=== PATIENT | male | born 1935 | race Caucasian/White ===

== ENCOUNTER → 2018-12-17 12:26 | Outpatient (CLI) | payer OTHER, SELFPAY ==
[2018-12-17 13:25] LABS: B Type Natriuretic Peptide 127 (<100)
[2018-12-17 14:10] LABS: Thyroid Stimulating Hormone 1.12 uIU/mL (0.47-4.68)
== END ==
PROVIDERS: Family Provider Family Medicine; PCP Family Medicine; Visit Provider Internal Medicine Cardiovascular Disease
DX: I47.2 Ventricular tachycardia (principal)
CPT/HCPCS: 36415; 83880; 83883; 84155; 84165; 84443

== ENCOUNTER → 2019-02-12 10:51 | Outpatient (CLI) | payer OTHER, SELFPAY ==
[2019-02-12 12:22] LABS: Add Manual Diff / Slide Review NO; Basophils Absolute Auto 0 /uL (0-100); Basophils Percent Auto 0.3 % (0-2); Eosinophils Absolute Auto 200 /uL (0-450); Eosinophils Percent Auto 1.8 % (2-4); Hematocrit 43.2 % (41-53); Hemoglobin 14.4 g/dL (13.5-17.5); Lymphocytes Absolute Auto 2300 /uL (1100-4500); Lymphocytes Percent Auto 24.5 % (25-40); Mean Corpuscular HGB Conc 33.4 % (30-36); Mean Corpuscular Volume 89.9 fL (80-100); Monocytes Absolute Auto 600 /uL (0-900); Monocytes Percent Auto 6.6 % (3-14); Neutrophils Absolute Auto 6200 /uL (1500-7000); Neutrophils Percent Auto 66.8 % (50-75); Platelet Count 177 X10^3/uL (150-400); Red Blood Cell Count 4.81 X10^6/uL (4.5-5.9); Red Cell Distribution Width 13.6 % (11.6-14.8); White Blood Cell Count 9.2 X10^3/uL (4.5-11.0)
[2019-02-12 12:25] LABS: Alanine Aminotransferase 21 IU/L (21-72); Albumin 3.8 g/dL (3.5-5.0); Albumin Globulin Ratio 1.4 (1.0-2.8); Alkaline Phosphatase 78 U/L (38-126); Aspartate Aminotransferase 22 IU/L (17-59); BUN Creatinine Ratio 19.4 (6-22); Bilirubin Total 0.6 mg/dL (0.2-1.3); Blood Urea Nitrogen 35 mg/dL (9-20); Carbon Dioxide 29 mmol/L (22-32); Chloride 106 mmol/L (98-107); Estimated Glomerular Filt Rate 36.4 mL/min (>60); Globulin 2.7 g/dL (1.7-4.1); Glucose 108 mg/dL (80-110); HEMOLYSIS < 15 (0-50); Potassium 4.4 mmol/L (3.4-5.1); Sodium 141 mmol/L (137-145); Total Protein 6.5 g/dL (6.3-8.2)
== END ==
PROVIDERS: Family Provider Family Medicine; PCP Family Medicine; Visit Provider Internal Medicine Cardiovascular Disease
DX: I47.2 Ventricular tachycardia (principal); R94.39 Abnormal result of other cardiovascular function study
CPT/HCPCS: 36415; 80053; 85025

== ENCOUNTER 2019-09-28 11:26 | Emergency (ER) | payer MEDICARE, OTHER, SELFPAY ==
[2019-09-28 11:43] VITALS: BP 153/85; PULSE 88; RESP 12; TEMP 36.3; O2SAT 98
--- NOTE | 2019-09-28 11:59 | ED.SKABFB ---
HPI - Skin/Abscess/Foreign Bdy <Emelia Ruano PA-C - Last Filed: 09/28/19 23:16> General Chief complaint: Skin/Abscess/Foreign Body Stated complaint: picc line flushed Time Seen by Provider: 09/28/19 11:48 Source: patient Mode of arrival: Ambulatory Limitations: no limitations History of Present Illness HPI narrative: This is an 83-year-old gentleman from [place] with a history notable for recent hospitalization for sepsis, Pseudomonas infection at [facility] who has been receiving IV infusions with Zosyn (performed by , RN) at home since his release; his PICC line has not been working since Saturday night. He states he had a peripheral IV placed by paramedics on Saturday, but he did miss his IV antibiotic therapy 3 times since his PICC line became plugged. He is being followed by Dr. Brown infectious disease in [place] and was recommended that he come to the emergency department in [place] to attempt to flush his PICC line, however if this is not successful it was recommended that he proceed with having another line placed. He is scheduled to continue having these Zosyn infusions for over 4 more weeks. 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 He denies any systemic symptoms or change in his overall health including fever, chills, nausea, vomiting, diarrhea, abdominal pain, increased fatigue, redness or pain at the site of the PICC line insertion, or any other symptoms. MD complaint: other (PICC line not flushing) Onset (ago): day(s) (2) Location: RUE Severity: moderate Quality: other (not painful) Relieving factors: none Context: recent antibiotic Related Data Home Medications Medication Instructions Recorded Confirmed VITAMIN D (Vitamin D3) 1,000 unit PO QDAY #0 07/18/12 Previous Rx's Medication Instructions Recorded rizatriptan [Maxalt] 10 mg PO QDAY #18 tab 06/27/16 albuterol sulfate [Ventolin HFA] 2 puff INH SEE INSTRUCTIONS PRN #2 08/14/16 inh febuxostat [Uloric] 40 mg PO QDAY #180 tab 05/17/17 testosterone cypionate 200 mg IM X1 #2 ea 11/14/16 [Depo-Testosterone] fluticasone propionate [Flonase 1 spray INTRANASAL QDAY #1 bot 11/22/16 Allergy Relief] omeprazole 10 mg PO QDAY #90 cap 11/22/16 doxazosin [Cardura] 6 mg PO HS #135 tab 11/26/16 lisinopril 20 mg PO QDAY #90 tab 12/06/16 tramadol 0 PO BIDP PRN #120 tab 01/04/17 doxycycline monohydrate 50 mg PO BID #90 cap 01/07/17 metronidazole [Noritate] 1 % TOPICAL QDAY #30 gm 01/07/17 sildenafil (pulm.hypertension) 0 PO HS #150 tab 01/07/17 Allergies Allergy/AdvReac Type Severity Reaction Status Date / Time allopurinol [ALLOPURINOL] Allergy Unknown H.A. Unverified 08/07/17 11:59 amlodipine [AMLODIPINE] Allergy Unknown EDEMA Unverified 08/07/17 11:59 colchicine [COLCHICINE] Allergy Unknown NEUSEA,DYSU Unverified 08/07/17 11:59 NIKOS,CRAMPIN G formoterol [FORMOTEROL] Allergy Unknown Unverified 08/07/17 11:59 mometasone furoate Allergy Unknown Unverified 08/07/17 11:59 [MOMETASONE FUROATE] tiotropium [TIOTROPIUM] Allergy Unknown RASH Unverified 08/07/17 11:59 Review of Systems <Emelia Ruano PA-C - Last Filed: 09/28/19 23:16> Review of Systems Narrative: GENERAL: Denies chills, fatigue, malaise, fever, sweats. HEENT: Denies sinus pain, ear pain, sore throat, difficulty swallowing, dizziness. RESPIRATORY: Denies dyspnea, cough, wheezing, hemoptysis, sputum. CARDIOVASCULAR: Denies chest pain, palpitations, orthopnea, edema, GASTROINTESTINAL: Denies nausea, vomiting, abdominal pain, diarrhea, constipation, melena. : Denies dysuria, frequency, incontinence, hematuria, urinary retention. MUSCULOSKELETAL: denies weakness, joint pain, or bony pain SKIN: Positive for PICC line Right arm not flushing, Denies rash, skin lesions, or other NEUROLOGIC: Denies weakness, headache, numbness, change in speech, confusion, seizures, incoordination. PSYCHIATRIC: No concerning psychosocial issues. 12 point review of systems is negative except for those stated above Patient History <Emelia Ruano PA-C - Last Filed: 09/28/19 23:16> Social History Smoking Status: Never smoker Smoking Status: Never smoker Substance Use Type: does not use Exam <PEREZ Yarbrough Last Filed: 09/28/19 23:16> Narrative Exam Narrative: GENERAL: 83 year old patient appears stated age. Well-nourished, well-developed patient, in no apparent distress. HEAD: Atraumatic. Normocephalic. EYES: Pupils equal round and reactive. Extraocular motions intact. No scleral icterus. No injection or drainage. ENT: Nose without bleeding, purulent drainage. Throat without erythema, tonsillar hypertrophy or exudate. Airway patent. NECK: Trachea midline. Non tender CARDIOVASCULAR: Regular rate and rhythm without murmurs, gallops, or rubs. Pacer/defibrillator present Left anterior chest. RESPIRATORY: Clear to auscultation. Breath sounds equal bilaterally. No wheezes, rales, or rhonchi. GASTROINTESTINAL: Abdomen soft, non-tender, nondistended. EXTREMITIES: No edema or joint tenderness, there is a PICC line inserted medially in the Right upper arm. BACK: Nontender without deformity or crepitance. No flank tenderness. NEURO: AOx3. SKIN: No rash or erythema of visible areas Initial Vital Signs Initial Vital Signs: Vital Signs Temperature 97.4 F L 09/28/19 11:43 Pulse Rate 88 09/28/19 11:43 Respiratory Rate 12 09/28/19 11:43 Blood Pressure 153/85 H 09/28/19 11:43 Pulse Oximetry 98 09/28/19 11:43 <Amos Acevedo DO - Last Filed: 09/29/19 07:12> Initial Vital Signs Initial Vital Signs: Vital Signs Temperature 97.4 F L 09/28/19 11:43 Pulse Rate 88 09/28/19 11:43 Respiratory Rate 12 09/28/19 11:43 Blood Pressure 153/85 H 09/28/19 11:43 Pulse Oximetry 98 09/28/19 11:43 Course <PEREZ Yarbrough Last Filed: 09/28/19 23:16> Course Course Narrative: Spoke with Dr. Brown office and advised them their patient is here, they were aware and advised replacing PICC line today if needed. After discussing with RN, we agreed to contact PICC nurse that has specific experience with flushing PICC lines/determining if they will need replacement. Waiting call back from him. 12:09 Daysi (PICC RN) has evaluated and reports line is entirely clotted off and will need to be replaced. 12:18 PICC RN notes that it will not be possible to replace the patient's PICC line today, as he has cardiac leads present on the left for his pacer/ defibrillator he will have to wait [address] a new line on the right, and Daysi has instead placed a peripheral IV today so the Pt can continue parenteral therapy at home, advising that he will get him set up for an outpatient appointment to have a PICC line inserted on likely Saturday of this week. 12:45 Orders Ordered: ED Orders 09/28/19 12:19 EKG-12 Lead Stat Vital Signs Vital signs: Vital Signs - 8 hr 09/28/19 11:43 09/28/19 13:18 Temperature 97.4 F L Pulse Rate 88 90 Respiratory Rate 12 18 Blood Pressure 153/85 H 165/77 H Pulse Oximetry 98 97 <Amos Acevedo DO - Last Filed: 09/29/19 07:12> Orders Ordered: ED Orders 09/28/19 12:19 EKG-12 Lead Stat Vital Signs Vital signs: Vital Signs - 8 hr 09/28/19 11:43 09/28/19 13:18 Temperature 97.4 F L Pulse Rate 88 90 Respiratory Rate 12 18 Blood Pressure 153/85 H 165/77 H Pulse Oximetry 98 97 MDM - Skin/Abscess/Foreign Bdy <Emelia Ruano PA-C - Last Filed: 09/28/19 23:16> Differential Diagnosis Differential diagnosis: Likely other (PICC line problem) Medical Records Attestation: I reviewed the patient's medical records. ECG Data Attestation: I personally reviewed and interpreted this ECG as follows: (Sinus at Rate of 66 with first degree block, occasional PVCs. DC 240 QRS) MDM Narrative Medical decision making narrative: This is a well-appearing 83-year-old with recent hospitalization for Pseudomonas sepsis receiving IV antibiotics, Zosyn at home multiple times per day. Who presents with complaints of his PICC line not working properly since Saturday night--he is a resident of [place], where paramedics placed a peripheral line to enable him to continue his therapy prior to him coming to the emergency department today. Discussed this patient with Dr. Brown office in [place] who is managing his care and they do not report that there is any need for him to be admitted for IV antibiotics, but that he can continue his therapy at home. Patient showed no signs of systemic symptoms, and labs were not obtained. PICC line was not able to be placed due to the presence of cardiac leads on the left and clogged PICC line and removed today in the emergency department on the right. Patient is to return in 2-3 days for a PICC line replacement and until that time he has a peripheral IV in place to continue his parental therapy. Discharge Plan Departure Patient Disposition: Home Clinical Impression: Occluded PICC line Qualifiers: Encounter type: initial encounter Qualified Code(s): T82.898A - Other specified complication of vascular prosthetic devices, implants and grafts, initial encounter Discharge Date/Time: 09/28/19 13:18 Activity Restrictions/Additional Instructions: Thank you for letting us to be part of your care in the emergency department today. There is no evidence of an emergent or life threatening illness at this time, but follow up with your doctor in 1-2 days is recommended nonetheless to continue to rule out serious underlying causes of your symptoms. Please call the office for an appointment. Please return to the Emergency Department for any worsening or persistent symptoms. Please take medications as directed. Because you have cardiac pacer defibrillator wires on the left, we could not place a PICC line there today, however we did put a IV in your arm which you can use to continue her antibiotic therapy at home, for the next 48 hours until you come in as an outpatient to have of PICC line placed on Saturday of this week. If you develop any worsening, new or concerning symptoms please do not hesitate to call your physician or return to the emergency department. Including trouble with your IV, pain, swelling or redness at the previous PICC line site, fever, chills, nausea, vomiting, diarrhea or any other symptoms of concern to you. I recommend that you call Dr. Brown' office and advise her that you were not able to get a PICC line placed today and you are continuing with IV therapy through a peripheral IV in your arm for the next two days. Prescriptions: No Action VITAMIN D (Vitamin D3) 1,000 unit PO QDAY Qty: 0 RF: 0 rizatriptan [Maxalt] 10 MG tablet 10 mg PO QDAY Qty: 18 RF: 0 albuterol sulfate [Ventolin HFA] 90 MCG/PUFF HFA aerosol inhaler 2 puff INH SEE INSTRUCTIONS PRNQty: 2 RF: 1 febuxostat [Uloric] 40 MG tablet 40 mg PO QDAY Qty: 180 RF: 0 testosterone cypionate [Depo-Testosterone] 200 MG/1 ML oil 200 mg IM X1 Qty: 2 RF: 1 omeprazole 10 MG capsule,delayed release(DR/EC) 10 mg PO QDAY Qty: 90 RF: 0 fluticasone propionate [Flonase Allergy Relief] 9.9 ML spray,suspension 1 spray Intranasal QDAY Qty: 1 RF: 0 doxazosin [Cardura] 4 MG tablet 6 mg PO HS Qty: 135 RF: 1 lisinopril 20 MG tablet 20 mg PO QDAY Qty: 90 RF: 0 tramadol 50 MG tablet 0 PO BIDP PRNQty: 120 RF: 0 sildenafil (pulm.hypertension) 20 MG tablet 0 PO HS Qty: 150 RF: 0 doxycycline monohydrate 50 MG capsule 50 mg PO BID Qty: 90 RF: 0 metronidazole [Noritate] 1 % cream 1 % Topical QDAY Qty: 30 RF: 0 Referrals: Nila Brown [Non-Staff] - Michael Avila MD [Primary Care Provider] - <Amos Acevedo DO - Last Filed: 09/29/19 07:12> Cosign ED Attending Cosignature Attestation: I was immediately available in the department for consultation. This documentation has been reviewed and I agree with assessment and plan. Supervised by Amos Acevedo DO
--- NOTE | 2019-09-28 13:08 | PC.NURSE ---
called to evaluate picc line for pt c/
--- NOTE | 2019-09-28 13:09 | PC.NURSE ---
called to evaluate rt apicc
--- NOTE | 2019-09-28 13:09 | PC.NURSE ---
Called to evaluate rt arm picc line for c/o unable to infuse through line. attempted to flush line and unable to infuse ant
--- NOTE | 2019-09-28 13:15 | PC.NURSE ---
pt has a picc line he is unable to flush . call anuj the di nurse to assist.
[2019-09-28 13:18] VITALS: BP 165/77; PULSE 90; RESP 18; O2SAT 97
--- NOTE | 2019-09-28 13:24 | PC.NURSE ---
Called to evaluate Rt arm picc line for occlusion. Unable to flush line, blood noted in upper end which is usually clear. Unable to place line in lt arm due to pacemaker. New picc line can be placed 48hrs after current line discontinued. Rt arm picc line pulled with no problems line intact very little bleeding. Pressure held for 10mn on picc site dressing applied. 20g PIV started in upper lt arm via US.All pt questions answered instructed pt proper flushing technique.
--- NOTE | 2019-10-06 13:17 | ONC.MSW ---
Description: Initial Referral Navigation T/C Reason for Referral: Probable Multiple Myeloma Activity: Called patient to confirm that we've received his referral, introduced myself as the navigator, and briefly explained the availability of ongoing support, assistance and resources available at [facility]. Pt resides with his lynette Moreno, was recently hospitalized at [facility], where he had a bone marrow biopsy proving malignancy. Confirmed his initial appt. time for next Saturday, 10/12 at 10:00am.
== END 2019-09-28 13:18 | disposition home or self-care (01) ==
PROVIDERS: Emergency Provider Student in an Organized Health Care Education/Training Program; Family Provider Family Medicine; PCP Family Medicine
DX: T82.898A Other specified complication of vascular prosthetic devices, implants and grafts, initial encounter (principal); I44.0 Atrioventricular block, first degree; Z95.0 Presence of cardiac pacemaker
CPT/HCPCS: 36569; 93005; 93010; 99281; 99284

== ENCOUNTER → 2019-09-30 12:06 | Outpatient (CLI) | payer MEDICARE, OTHER, SELFPAY ==
--- NOTE | 2019-09-30 | DI.RAD.S_ITS ---
PROCEDURE: FL GUIDED PICC PLACEMENT INDICATIONS: Bacteremia COMPARISON: None. FINDINGS: PICC was placed by the intravenous therapy team from the right side. Fluoroscopic spot film demonstrates the tip of PICC projecting to the area of distal SVC IMPRESSION: Tip of PICC projects to the area of the distal SVC Dictated by: Jose Pascual M.D. on 09/30/2019 at 15:56 Approved by: Jose Pascual M.D. on 09/30/2019 at 16:12
== END ==
PROVIDERS: Family Provider Family Medicine; PCP Family Medicine; Referring Provider Internal Medicine Infectious Disease; Visit Provider Internal Medicine Infectious Disease
DX: Z45.2 Encounter for adjustment and management of vascular access device (principal); R78.81 Bacteremia
CPT/HCPCS: 36573

== ENCOUNTER → 2019-12-30 09:15 | Outpatient (CLI) | payer MEDICARE, OTHER, SELFPAY ==
[2019-12-30 10:09] LABS: Add Manual Diff / Slide Review NO; Basophils Absolute Auto 0 /uL (0-100); Basophils Percent Auto 0.5 % (0-2); Eosinophils Absolute Auto 100 /uL (0-450); Eosinophils Percent Auto 1.8 % (2-4); Hematocrit 38.2 % (41-53); Hemoglobin 12.8 g/dL (13.5-17.5); Lymphocytes Absolute Auto 1900 /uL (1100-4500); Lymphocytes Percent Auto 23.2 % (25-40); Mean Corpuscular HGB Conc 33.6 % (30-36); Mean Corpuscular Hemoglobin 30.1 PG (26-34); Mean Corpuscular Volume 89.6 fL (80-100); Monocytes Absolute Auto 500 /uL (0-900); Monocytes Percent Auto 6.8 % (3-14); Neutrophils Absolute Auto 5500 /uL (1500-7000); Neutrophils Percent Auto 67.7 % (50-75); Platelet Count 180 X10^3/uL (150-400); Red Blood Cell Count 4.26 X10^6/uL (4.5-5.9); Red Cell Distribution Width 13.9 % (11.6-14.8); White Blood Cell Count 8.1 X10^3/uL (4.5-11.0)
[2019-12-30 10:23] LABS: Alanine Aminotransferase 19 IU/L (<50); Albumin 3.8 g/dL (3.5-5.0); Albumin Globulin Ratio 1.2 (1.0-2.8); Alkaline Phosphatase 110 U/L (38-126); Aspartate Aminotransferase 24 IU/L (17-59); BUN Creatinine Ratio 19.5 (6-22); Bilirubin Total 0.6 mg/dL (0.2-1.3); Blood Urea Nitrogen 43 mg/dL (9-20); Calcium 10.6 mg/dL (8.4-10.2); Carbon Dioxide 28 mmol/L (22-32); Chloride 105 mmol/L (98-107); Estimated Glomerular Filt Rate 28.8 mL/min (>60); Globulin 3.3 g/dL (1.7-4.1); Glucose 93 mg/dL (80-110); HEMOLYSIS < 15 (0-50); Sodium 139 mmol/L (137-145); Total Protein 7.1 g/dL (6.3-8.2)
[2019-12-31 13:48] LABS: Ionized Calcium 5.5 mg/dL (4.5-5.6)
[2019-12-31 15:48] LABS: Free Kappa Lt Chains, Serum 740.4 mg/L (3.3-19.4); Free Lambda Lt Chains,Serum 17.3 mg/L (5.7-26.3)
[2020-01-01 13:45] LABS: Albumin 3.6 g/dL (2.9-4.4); Alpha-1-Globulin 0.2 g/dL (0.0-0.4); Alpha-2-Globulin 0.6 g/dL (0.4-1.0); Gamma Globulin 1.8 g/dL (0.4-1.8); Globulin Total 3.3 g/dL (2.2-3.9); Protein, Total 6.9 g/dL (6.0-8.5)
== END ==
PROVIDERS: Family Provider Family Medicine; PCP Family Medicine; Referring Provider Internal Medicine; Visit Provider Internal Medicine
DX: C90.00 Multiple myeloma not having achieved remission (principal)
CPT/HCPCS: 36415; 80053; 82330; 83883; 84155; 84165; 85025

== ENCOUNTER → 2020-01-06 12:06 | Outpatient (CLI) | payer MEDICARE, OTHER, SELFPAY ==
--- NOTE | 2020-01-06 12:25 | DIET.PN ---
Addendum entered by Joseline Garcia 01/06/20 13:31: Recc pt consider phosphate binders c meals if phos is high. Pt is Chronic Kidney Disease 3 Original Note: Dietary Progress Note Assessment: 84y M here for dietary reccs for renal insufficiency and has multiple myeloma currently seeing [facility]. kidney removed in 1990 r/t cancer had heart issues and kidney function went down Pt goal is to stay alive and have quality of life, here to appease . HT: 5'10 WT: 172# (lost 15# since June but not concerning to him) Labs: eGFR 28 down 10pts from September 2019, Cr 2.2, up from 1.7 in September 2019, K+ 5.0 WNL, no phos on file Usual Day: wakes 8am (does not feel rested, back pain and fatigue) coffee c 1/2 and 1/2 and sugar B(9-11am): shredded wheat c 2% milk and table sugar c fruit (berries, grows own fruits) plays golf twice per week, tasks around the house, 10 acres, mow, fixing L(2pm main meal): meat (pork, chicken, beans, fish), vegetable (fresh in summer, green beans and artichokes, asparagus, peas, tomatoes), salad, potato (baked, fried, oven fries c olive oil) takes afternoon, wakes 4pm D(6-7pm): leftovers or salad c nachos (cheddar cheese, peppers) watches a little TV sometime has little bedtime snack (peaches) goes to bed 9:30pm Drinks: soda stream machine mixes fizzy water with grape juice, or plain water Sodium: does sometimes salt at the table, mimimal processed foods Protein: pts food recall is on track for 50g PRO/d (0.6g/kg) and should stay at this level r/t high Cr. potassium: pt does not eat bananas, does like potatoes, tomatoes and orange juice. phosphorus: pt puts 2% milk on cereal and eats 1-2 servings dairy per day Nutrition Diagnosis: altered nutrition related laboratory values (eGFR 28, Cr 2.2) r/t renal insufficiency and renal diet related knowledge deficit aeb pt had kidney removed in 1990, pt not following renal diet, pts renal labs became less regulated in September 2019. Interventions: 1. Discussed intake of sodium, to limit it to 1tsp per day, not all at once, avoiding ultraprocessed foods. 2. Discussed eGFR and Cr and intake of protein. Aim for 50g/d, pt received protein content of foods handout, prioritize plant protein for renal health. 3. Discussed borderline potassium likely due to potato, tomato, and orange juice intake. Recc pt soak potatoes and drain water before preparing to reduce potassium by half and to stagger intake of high K+ foods over several days. 4. Discussed pts current sx of itchy skin and joint pain. No phos levels on record, recc lab draw. Encouraged pt to avoid baking leaveners as these are absorbed 100%, dairy and muñiz phosphorus only absorbed 60%. Monitoring/Evaluations: [facility] phos lab draws r/t pt has joint pain and itchy skin, pt has RD card to schedule f/u as desired when new labs arrive
== END ==
PROVIDERS: Family Provider Family Medicine; PCP Family Medicine; Referring Provider Internal Medicine; Visit Provider Internal Medicine
DX: N28.9 Disorder of kidney and ureter, unspecified (principal); C90.00 Multiple myeloma not having achieved remission
CPT/HCPCS: 97802

== ENCOUNTER → 2020-08-09 08:00 | Outpatient (CLI) | payer MEDICARE, OTHER, SELFPAY ==
[2020-08-09 08:34] LABS: Add Manual Diff / Slide Review NO; Basophils Absolute Auto 0 /uL (0-100); Basophils Percent Auto 0.3 % (0-2); Eosinophils Absolute Auto 200 /uL (0-450); Eosinophils Percent Auto 1.7 % (2-4); Hematocrit 37.7 % (41-53); Hemoglobin 12.5 g/dL (13.5-17.5); Lymphocytes Absolute Auto 2900 /uL (1100-4500); Lymphocytes Percent Auto 26.7 % (25-40); Mean Corpuscular HGB Conc 33.3 % (30-36); Mean Corpuscular Hemoglobin 30.1 PG (26-34); Mean Corpuscular Volume 90.4 fL (80-100); Monocytes Absolute Auto 900 /uL (0-900); Monocytes Percent Auto 8.1 % (3-14); Neutrophils Absolute Auto 6800 /uL (1500-7000); Neutrophils Percent Auto 63.2 % (50-75); Platelet Count 163 X10^3/uL (150-400); Red Blood Cell Count 4.17 X10^6/uL (4.5-5.9); Red Cell Distribution Width 13.8 % (11.6-14.8); White Blood Cell Count 10.7 X10^3/uL (4.5-11.0)
[2020-08-09 08:45] LABS: Alanine Aminotransferase 21 IU/L (<50); Albumin 3.6 g/dL (3.5-5.0); Alkaline Phosphatase 116 U/L (38-126); Aspartate Aminotransferase 26 IU/L (17-59); BUN Creatinine Ratio 23.9 (6-22); Bilirubin Total 0.6 mg/dL (0.2-1.3); Blood Urea Nitrogen 45 mg/dL (9-20); Calcium 9.3 mg/dL (8.4-10.2); Carbon Dioxide 27 mmol/L (22-32); Chloride 109 mmol/L (98-107); Estimated Glomerular Filt Rate 34.5 mL/min (>60); Globulin 3.6 g/dL (1.7-4.1); Glucose 86 mg/dL (80-110); HEMOLYSIS < 15 (0-50); Potassium 4.3 mmol/L (3.4-5.1); Sodium 142 mmol/L (137-145); Total Protein 7.2 g/dL (6.3-8.2)
[2020-08-11 00:44] LABS: Free Kappa Lt Chains, Serum 1071.7 mg/L (3.3-19.4); Free Lambda Lt Chains,Serum 15.2 mg/L (5.7-26.3)
[2020-08-11 00:45] LABS: Ionized Calcium 4.6 mg/dL (4.5-5.6)
[2020-08-11 17:49] LABS: Albumin 3.7 g/dL (2.9-4.4); Alpha-1-Globulin 0.2 g/dL (0.0-0.4); Alpha-2-Globulin 0.7 g/dL (0.4-1.0); Gamma Globulin 2.3 g/dL (0.4-1.8); Globulin Total 3.9 g/dL (2.2-3.9); Protein, Total 7.6 g/dL (6.0-8.5)
== END ==
PROVIDERS: Family Provider Family Medicine; PCP Family Medicine; Referring Provider Internal Medicine; Visit Provider Internal Medicine
DX: C90.00 Multiple myeloma not having achieved remission (principal)
CPT/HCPCS: 36415; 80053; 82330; 83883; 84155; 84165; 85025

== ENCOUNTER → 2021-01-11 15:36 | Outpatient (CLI) | payer MEDICARE, OTHER, SELFPAY ==
--- NOTE | 2021-01-11 15:38 | DI.RAD.S_ITS ---
PROCEDURE: XR CHEST 2V INDICATIONS: cough TECHNIQUE: 2 views of the chest were acquired. COMPARISON: [facility], CHEST 2 VIEW, 05/29/2013, 14:19. FINDINGS: Surgical changes and devices: Pacemaker Lungs and pleura: Lungs are clear. No pleural effusions or pneumothorax. Mediastinum: Mediastinal contours are normal. Heart size is normal. Bones and chest wall: No suspicious bony abnormalities. Soft tissues appear unremarkable. IMPRESSION: No evidence acute pulmonary process. Dictated by: Torres Valdes M.D. on 01/11/2021 at 16:37 Approved by: Torres Valdes M.D. on 01/11/2021 at 16:37
== END ==
PROVIDERS: Family Provider Family Medicine; PCP Family Medicine; Referring Provider Internal Medicine Medical Oncology; Visit Provider Internal Medicine Medical Oncology
DX: C90.00 Multiple myeloma not having achieved remission (principal); R05 Cough; Z95.0 Presence of cardiac pacemaker
CPT/HCPCS: 71046

== ENCOUNTER → 2021-02-08 14:10 | Outpatient (CLI) | payer MEDICARE, OTHER, SELFPAY ==
--- NOTE | 2021-02-08 14:12 | DI.RAD.S_ITS ---
PROCEDURE: XR CHEST 2V INDICATIONS: shortness of breath TECHNIQUE: 2 views of the chest were acquired. COMPARISON: [place], [place], [place] PET CT FUSION WHOLE BODY, 12/07/2020, 9:33. [place], [place], [place] LUNG VQ, 01/15/2021, 9:52. [facility], [place], XR CHEST 1 VIEW, 01/14/2021, 15:16. [facility], , XR CHEST 2V, 01/11/2021, 15:35. FINDINGS: Surgical changes and devices: An AICD is seen. The leads are seen in stable positions. Left upper quadrant clips are seen. Lungs and pleura: Poorly defined opacity can be seen within the right middle lobe anteriorly. The lungs otherwise appear relatively clear. Mediastinum: Mediastinal contours are normal. Heart size is normal. Bones and chest wall: No suspicious bony abnormalities. Age-appropriate bony degenerative changes are seen. Soft tissues appear unremarkable. IMPRESSION: Mild right middle lobe poorly defined opacity. Please consider short-term follow-up or a chest CT for further evaluation. Dictated by: Cirilo Pino M.D. on 02/08/2021 at 13:28 Approved by: Cirilo Pino M.D. on 02/08/2021 at 13:30
== END ==
PROVIDERS: Family Provider Family Medicine; PCP Family Medicine; Referring Provider Internal Medicine Medical Oncology; Visit Provider Internal Medicine Medical Oncology
DX: C90.00 Multiple myeloma not having achieved remission (principal); R06.02 Shortness of breath
CPT/HCPCS: 71046

== ENCOUNTER → 2021-07-11 15:41 | Outpatient (CLI) | payer MEDICARE, OTHER, SELFPAY ==
--- NOTE | 2021-07-11 | DI.CT.S_ITS ---
PROCEDURE: CT LUMBAR SPINE WO CON INDICATIONS: lumbar radiculopathy/right foot drop/spinal steno TECHNIQUE: Noncontrast 3 mm thick sections acquired from the T12 level to the sacrum. Sagittal and coronal reformats were constructed. For radiation dose reduction, the following was used: automated exposure control. COMPARISON: Outside Facility, [place], MRI L-SPINE W/O CONTRAST, 04/12/2021, 14:53. FINDINGS: Image quality: Excellent. Bones: There is 3 mm retrolisthesis of L3 on L4, 1 mm retrolisthesis of L5 on S1. Multilevel severe degenerative disc space narrowing is present throughout the lumbar spine most severe at L2-3, L3-4. Vacuum discs are present throughout the lumbar spine. Multilevel anterior osteophytes are present most prominently bridging at L2-3, L3-4. Multilevel ill-defined lucencies are present throughout the visualized vertebral bodies within the lower thoracic and extending into the lumbar and sacral spine. Areas of abnormal mallet a are also identified within the visualized pelvic bones. It is noted areas of abnormal signal within these regions were also identified on MRI of 04/12/2021. They appear relatively stable. No evidence of pathologic fracture. Disc bulges are present at L1-2, L2-3, L3-4, L4-5 and L5-S1. Moderate spinal stenosis is present at L1-L2, L2-3, L3-4, mild L4-5. Multi level ligamentum flavum hypertrophy are present. There is moderate left and mild right foraminal narrowing at L1-L2, severe left and minimal right foraminal narrowing with marked narrowing of the right lateral recess at L2-3, severe right and moderate to severe left foraminal narrowing with bilateral lateral recess narrowing severe on the right at L3-4, severe right and [id number] left foraminal narrowing L4-5 with moderate bilateral lateral recess narrowing, mild right and moderate left foraminal narrowing at L5-S1. Prominent multilevel facet arthropathy are present. Overall degenerative changes appears stable compared to prior exam. Soft tissues: No retroperitoneal masses or hematomas. Visualized aorta is normal in caliber. Prominent colonic diverticula are present. Exophytic right renal mass is present suggestive of simple cyst when compared to recent MRI. IMPRESSION: Multiple areas of lucency within the visualized thoracic, lumbar and sacral spine extending to the pelvis similar in appearance as identified on prior MRI suggestive of myeloma lesions. No pathologic fracture. Multilevel spinal stenosis most severe at L1-2, L2-3 and L3-4 secondary to disc bulge with contributing effect of facet/ligamentum flavum arthropathy. Multilevel foraminal and lateral recess narrowing secondary to disc bulge with contributing affective facet arthropathy. Dictated by: Aleida Chou M.D. on 07/19/2021 at 10:48 Approved by: Aleida Chou M.D. on 07/19/2021 at 11:19
== END ==
PROVIDERS: Family Provider Family Medicine; PCP Family Medicine; Referring Provider Neurological Surgery; Visit Provider Neurological Surgery
DX: M51.16 Intervertebral disc disorders with radiculopathy, lumbar region (principal); M47.26 Other spondylosis with radiculopathy, lumbar region; M48.062 Spinal stenosis, lumbar region with neurogenic claudication; M21.371 Foot drop, right foot; M89.9 Disorder of bone, unspecified
CPT/HCPCS: 72131